=== PATIENT | male | born 1950 | race Caucasian/White ===

== ENCOUNTER 2021-11-22 10:27 | Emergency (ER) | payer MEDICARE ==
[2021-11-22] MEDS ORDERED: Sulfamethoxazole/Trimethoprim 800-160 MG Tab ONE (11:00)
[2021-11-22] MEDS ORDERED: Phenazopyridine 100 MG Tab ONE (11:00)
== END 2021-11-22 11:35 | disposition home or self-care (01) ==
LOC: LB.ED 10:27
DX: N39.0 Urinary tract infection, site not specified (principal)
CPT/HCPCS: 81001; 87086; 99284; A9270; 99282